=== PATIENT | male | born 1950 | race Caucasian/White ===

== ENCOUNTER → 2017-09-18 10:17 | Outpatient (CLI) | payer OTHER, SELFPAY ==
[2017-09-18 11:30] LABS: AST(SGOT) 28 U/L (15-37); Alanine Aminotransfer ALT/SGPT 49 U/L (16-61); Albumin, Serum 4.2 g/dL (3.2-5.0); Alkaline Phosphatase 75 U/L (45-117); Bilirubin, Direct 0.19 mg/dL (0.00-0.30); Globulin 3.6 g/dL (2.2-4.2); Protein, Total 7.8 g/dL (6.4-8.2)
== END ==
PROVIDERS: Family Provider Family Medicine; PCP Family Medicine; Visit Provider Family Medicine
DX: Z79.899 Other long term (current) drug therapy (principal)
CPT/HCPCS: 36415; 80076

== ENCOUNTER → 2018-02-09 07:56 | Outpatient (CLI) | payer OTHER, SELFPAY ==
--- NOTE | 2018-02-09 07:59 | US_ITS ---
STUDY: THYROID ULTRASOUND REASON FOR EXAM: Male, 67 years old. History of thyroid nodules. Follow-up examination. TECHNIQUE: Ultrasound evaluation of the thyroid was performed with real-time and static nichols-scale imaging. COMPARISON: Comparison is made with prior study dated July 24, 2017 and July 08, 2016. FINDINGS: RIGHT LOBE: The right lobe of the thyroid gland measures 4.6 cm x 1.5 cm x 1.4 cm. There is a homogeneous echotexture. In the midpole of the right lobe, there is a 5 mm x 4 mm x 3 mm solid and cystic nodule. This is unchanged. LEFT LOBE: The left lobe of the thyroid gland measures 4.7 cm x 1.7 cm x 2.2 cm. There is a homogeneous echotexture. There is a stable 1 cm x 0.8 cm x 0.8 cm solid nodule in the midpole of the thyroid lobe. This also evidence of a 6 mm x 6 mm x 5 mm hypoechoic solid nodule in the mid posterior aspect of the left lobe. This also evidence of a 1 cm x 0.8 cm x 0.7 cm hypoechoic solid nodule in the mid inferior portion of the left lobe.. ISTHMUS: The isthmus measures 3.0 mm. The regional lymph nodes are normal. US/Thyroid IMPRESSION: Stable appearance of the thyroid. A third nodule measuring 1 cm x 0.8 cm x 0.7 cm is seen in the left lobe. Electronically Signed: Smith Pabon MD at 15:56 EDT Tel [phone], Service support ,
== END ==
PROVIDERS: Family Provider Family Medicine; PCP Family Medicine; Visit Provider Family Medicine
DX: E04.1 Nontoxic single thyroid nodule (principal)
CPT/HCPCS: 76536

== ENCOUNTER → 2018-03-05 17:29 | Outpatient (CLI) | payer OTHER, SELFPAY ==
--- NOTE | 2018-03-05 17:32 | CT_ITS ---
STUDY: CT ABDOMEN AND PELVIS WITH CONTRAST REASON FOR EXAM: Male, 67 years old. History of diverticular disease. Left-sided abdominal pain. RADIATION DOSAGE (If Supplied By Facility): CTDIvol = ( 13.97 ) mGy, DLP = ( 550.22 ) mGycm TECHNIQUE: Transaxial images were obtained from the dome of the diaphragm to the symphysis pubis with oral contrast. 100 ml of Isovue 300 contrast was administered. Sagittal and coronal images were reconstructed. Individualized dose optimization techniques were used for this CT. COMPARISON: CT of the abdomen and pelvis, May 05, 2017. FINDINGS: The visualized lung bases are unremarkable. The visualized portions of the heart are within normal limits. There is mild fatty infiltration of the liver. There is an irregular hypodensity segment 7 of the liver measuring 0.9 x 0.6 x 0.7 cm. This is thought to represent a cyst. No enhancing masses are seen. Normal gallbladder and extrahepatic biliary system. Normal spleen. Normal pancreas. Normal bilateral adrenal glands. Normal right kidney. Normal left kidney. Normal visualized bilateral ureters. There is a small type I hiatal hernia. The stomach is otherwise grossly unremarkable. Normal small intestine. Question of some minimal wall thickening of the distal descending colon and very mild inflammatory changes are thought present. There is no evidence of obstruction. The colon proximal and distal to this area appeared normal. There is non-visualization of the appendix. Normal abdominal aorta. Normal inferior vena cava. Normal retroperitoneum. Normal urinary bladder. The prostate is mildly enlarged. No pelvic lymphadenopathy. No free air or free fluid is seen within the peritoneal cavity. There are bilateral inguinal hernias of omental fat. The abdominal wall is otherwise unremarkable. There are minimal degenerative changes thoracic spine. There is a stable compression deformity of the superior endplate of T12. CT/Abdomen/Pelvis WITH Contrast IMPRESSION: 1. Question minimal inflammatory changes of the distal descending colon. When compared to the prior study, this is decreased in degree and may represent scarring rather than an acute finding. 2. No other interval change. Electronically Signed: Bam Chase DO at 19:33 EDT Tel [phone], Service support ,
[2018-03-05 17:46] LABS: CREATININE FINGERSTICK 0.6 mg/dL (0.70-1.30); EGFR FINGERSTICK > 60.0000 mL/min (>60)
== END ==
PROVIDERS: Family Provider Family Medicine; PCP Family Medicine; Visit Provider Family Medicine
DX: R10.9 Unspecified abdominal pain (principal)
CPT/HCPCS: 74177; Q9967

== ENCOUNTER → 2018-07-13 09:19 | Outpatient (CLI) | payer OTHER, SELFPAY ==
[2018-07-13 09:43] LABS: Absolute Lymphocyte Count 2.22 X10^3/ul (0.83-4.51); Absolute Neutrophil Count 4.7 X10^3/uL (2.0-7.7); Basophil# 0.04 X10^3/uL; Basophil% 0.5 % (0-1); Eosinophil# 0.25 X10^3/uL; Eosinophils% 3.2 % (0-5); Hematocrit 42.8 % (40-54); Hemoglobin 15.2 g/dl (13.0-16.5); Lymphocyte # 2.22 X10^3/ul (4.0); Lymphocyte % 28.5 % (19-41); Mean Corp Hgb Conc 35.5 g/gl (32-36); Mean Corpuscular Volume 92.8 fL (80-94); Mean Platelet Vol. 10.4 fl (6.2-12.0); Monocyte# 0.54 X10^3/uL; Monocyte% 6.9 % (0-10); Neutrophil # 4.72 X10^3/uL (2.7-7.7); Neutrophil % 60.8 % (47-70); Platelet Count 156 K/mm3 (150-450); RBC Distribution Width SD 40.3 fl (35.1-43.9); Red Blood Count 4.61 M/mm3 (4.6-6.2); White Blood Count 7.8 K/mm3 (4.4-11.0)
[2018-07-13 09:45] LABS: POSITIVE COUNT NO; POSITIVE DIFFERENTIAL NO; POSITIVE MORPHOLOGY NO
[2018-07-13 10:13] LABS: AST(SGOT) 22 U/L (15-37); Alanine Aminotransfer ALT/SGPT 40 U/L (16-61); Albumin, Serum 3.7 g/dL (3.2-5.0); Alkaline Phosphatase 74 U/L (45-117); Anion Gap 5 (5-15); BUN 9 mg/dL (7-18); BUN/Creat Ratio 9.6 RATIO (10-20); Calcium,Total 8.4 mg/dL (8.5-10.1); Chloride 108 mmol/L (98-107); Cholesterol 90 mg/dL (200); Creatinine, Serum 0.93 mg/dL (0.70-1.30); EST Glomerular Filtration Rate 86 mL/min (>60); Est Glom Filt Rate - Afr Amer 104 mL/min (>60); Globulin 3.6 g/dL (2.2-4.2); Glucose 99 mg/dL (74-106); High Density Lipoprotein 30 mg/dL; Protein, Total 7.3 g/dL (6.4-8.2); Sodium Level 140 mmol/L (136-145); Thyroid Stim Hormone (TSH) 1.67 uIU/mL (0.358-3.74); Triglycerides 181 mg/dL; Very Low Density Lipoprotein 36 mg/dL (5-40)
== END ==
PROVIDERS: Family Provider Family Medicine; PCP Family Medicine; Referring Provider Family Medicine; Visit Provider Family Medicine
DX: E78.5 Hyperlipidemia, unspecified (principal); R10.9 Unspecified abdominal pain; E04.2 Nontoxic multinodular goiter
CPT/HCPCS: 36415; 80053; 80061; 84443; 85025

== ENCOUNTER → 2018-11-19 09:53 | Outpatient (CLI) | payer OTHER, SELFPAY | PROVIDERS: Family Provider Family Medicine; PCP Family Medicine; Referring Provider Otolaryngology; Visit Provider Otolaryngology | DX: S01.309A Unspecified open wound of unspecified ear, initial encounter (principal) | CPT/HCPCS: 87070; 87075; 87205 ==

== ENCOUNTER → 2018-12-12 | Outpatient (CLI) | payer OTHER, SELFPAY | END | disposition home or self-care (01) | LOC: LABSPEC 20:09 | PROVIDERS: Family Provider Family Medicine; PCP Family Medicine; Referring Provider Otolaryngology Otolaryngology/Facial Plastic Surgery; Visit Provider Otolaryngology Otolaryngology/Facial Plastic Surgery | DX: H61.032 Chondritis of left external ear (principal) | CPT/HCPCS: 87070; 87205 ==

== ENCOUNTER → 2018-12-23 08:23 | Outpatient (CLI) | payer OTHER, SELFPAY ==
[2018-12-23 09:18] LABS: Absolute Lymphocyte Count 1.77 X10^3/ul (0.83-4.51); Absolute Neutrophil Count 4.4 X10^3/uL (2.0-7.7); Basophil# 0.03 X10^3/uL; Basophil% 0.4 % (0-1); Eosinophil# 0.17 X10^3/uL; Eosinophils% 2.5 % (0-5); Hematocrit 44.4 % (40-54); Hemoglobin 15.6 g/dl (13.0-16.5); Lymphocyte # 1.77 X10^3/ul (4.0); Lymphocyte % 25.8 % (19-41); Mean Corp Hgb Conc 35.1 g/gl (32-36); Mean Corpuscular Hgb 32.2 pg (27.0-32.0); Mean Corpuscular Volume 91.7 fL (80-94); Mean Platelet Vol. 10.4 fl (6.2-12.0); Monocyte# 0.51 X10^3/uL; Monocyte% 7.4 % (0-10); Neutrophil # 4.37 X10^3/uL (2.7-7.7); Neutrophil % 63.8 % (47-70); Platelet Count 169 K/mm3 (150-450); RBC Distribution Width SD 39.6 fl (35.1-43.9); Red Blood Count 4.84 M/mm3 (4.6-6.2); White Blood Count 6.9 K/mm3 (4.4-11.0)
[2018-12-23 09:22] LABS: POSITIVE COUNT NO; POSITIVE DIFFERENTIAL NO; POSITIVE MORPHOLOGY NO
[2018-12-23 09:49] LABS: ALB/GLOB Ratio 1.2 RATIO (0.9-2.4); AST(SGOT) 30 U/L (15-37); Alanine Aminotransfer ALT/SGPT 36 U/L (16-61); Albumin, Serum 4.2 g/dL (3.2-5.0); Alkaline Phosphatase 67 U/L (45-117); Anion Gap 3 (5-15); BUN 10 mg/dL (7-18); BUN/Creat Ratio 10.4 RATIO (10-20); Chloride 109 mmol/L (98-107); Cholesterol 111 mg/dL (200); Creatinine, Serum 0.96 mg/dL (0.70-1.30); EST Glomerular Filtration Rate 82 mL/min (>60); Est Glom Filt Rate - Afr Amer 100 mL/min (>60); Globulin 3.6 g/dL (2.2-4.2); Glucose 102 mg/dL (74-106); High Density Lipoprotein 37 mg/dL; PSA,Total - Annual Screen 0.48 ng/mL (0.00-4.00); Potassium 4.1 mmol/L (3.5-5.1); Protein, Total 7.8 g/dL (6.4-8.2); Sodium Level 141 mmol/L (136-145); Thyroid Stim Hormone (TSH) 1.34 uIU/mL (0.358-3.74); Triglycerides 88 mg/dL; Very Low Density Lipoprotein 18 mg/dL (5-40)
[2018-12-23 10:10] LABS: Hemoglobin A1c 5.3 % (4.2-6.3)
== END ==
PROVIDERS: Family Provider Family Medicine; PCP Family Medicine; Referring Provider Family Medicine; Visit Provider Family Medicine
DX: T81.31XA Disruption of external operation (surgical) wound, not elsewhere classified, initial encounter (principal); E78.5 Hyperlipidemia, unspecified; E04.2 Nontoxic multinodular goiter; Z12.5 Encounter for screening for malignant neoplasm of prostate
CPT/HCPCS: 36415; 80053; 80061; 83036; 84153; 84443; 85025; G0103

== ENCOUNTER → 2019-05-12 | Outpatient (CLI) | payer OTHER, SELFPAY ==
--- NOTE | 2019-05-12 08:18 | US_ITS ---
STUDY: THYROID ULTRASOUND REASON FOR EXAM: Male, 68 years old. Nodules TECHNIQUE: Ultrasound evaluation of the thyroid was performed with real-time and static nichols-scale imaging. COMPARISON: None. FINDINGS: RIGHT LOBE: The right lobe of the thyroid gland measures 4.7 x 1.5 x 2.0 cm. There is a homogeneous echotexture. There is a solid mid thyroid 4 mm nodule. The previously noted cystic component of this nodule is not seen. LEFT LOBE: The left lobe of the thyroid gland measures 4.4 x 1.7 x 2.0 cm. There is a homogeneous echotexture. There is a heterogeneous hypoechoic partially cystic mid thyroid nodule measuring 6 x 7 mm. A mid thyroid slightly heterogeneous solid 9 x 6 mm nodule is noted. Echogenic lower 8 x 9 mm solid nodule is noted. These nodules are relatively stable. ISTHMUS: The isthmus measures 2 mm . The regional lymph nodes are normal. US/Thyroid IMPRESSION: Relatively stable nodules in the left thyroid lobe. The right thyroid nodule appears more solid since the previous study. Electronically Signed: Carl Perez DO at 19:14 EDT Tel [phone], Service support ,
== END | disposition home or self-care (01) ==
LOC: US 08:16
PROVIDERS: Family Provider Family Medicine; PCP Family Medicine; Referring Provider Family Medicine; Visit Provider Family Medicine
DX: E04.2 Nontoxic multinodular goiter (principal)
CPT/HCPCS: 76536

== ENCOUNTER → 2020-05-04 08:55 | Outpatient (CLI) | payer OTHER, SELFPAY ==
[2020-05-04 10:42] LABS: Anion Gap 7 (5-15); BUN 9 mg/dL (7-18); BUN/Creat Ratio 9.2 RATIO (10-20); Calcium,Total 9.1 mg/dL (8.5-10.1); Chloride 107 mmol/L (98-107); Cholesterol 170 mg/dL (200); Creatinine, Serum 0.98 mg/dL (0.70-1.30); EST Glomerular Filtration Rate 80 mL/min (>60); Est Glom Filt Rate - Afr Amer 97 mL/min (>60); Glucose 95 mg/dL (74-106); High Density Lipoprotein 41 mg/dL; PSA,Total - Annual Screen 0.53 ng/mL (0.00-4.00); Sodium Level 140 mmol/L (136-145); Thyroid Stim Hormone (TSH) 1.36 uIU/mL (0.358-3.74); Triglycerides 102 mg/dL; Very Low Density Lipoprotein 20 mg/dL (5-40)
== END ==
PROVIDERS: PCP Family Medicine; Referring Provider Family Medicine; Visit Provider Family Medicine
DX: Z00.00 Encounter for general adult medical examination without abnormal findings (principal)
CPT/HCPCS: 36415; 80048; 80061; 84153; 84403; 84443; G0103

== ENCOUNTER → 2020-12-01 06:46 | Outpatient (CLI) | payer MEDICARE, OTHER, SELFPAY ==
--- NOTE | 2020-12-01 06:50 | CT_ITS ---
STUDY: CT ABDOMEN AND PELVIS WITH AND WITHOUT CONTRAST REASON FOR EXAM: Male, 69 years old. ABD MIGRAINES, urinary calculus. Mild left-sided abdominal pain with radiation into the left groin. RADIATION DOSAGE (If Supplied By Facility): CTDIvol = ( 14.10 ) mGy, DLP = ( 1279.91 ) mGycm TECHNIQUE: Transaxial images were obtained from the dome of the diaphragm to the symphysis pubis with oral contrast. Oral and amp; IV Readi-CAT and amp; 100mL Isovue-300 was administered. Sagittal and coronal images were reconstructed. Individualized dose optimization techniques were used for this CT. COMPARISON: Comparison is made with prior study dated 03/05/2018. FINDINGS: The visualized lung bases are unremarkable. The visualized portions of the heart are within normal limits. Stable 1 cm cyst in the lateral aspect of the midportion of the right lobe of the liver in segment 7. Normal gallbladder and extrahepatic biliary system. Normal spleen. 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 Normal pancreas. Normal bilateral adrenal glands. Normal right kidney. Normal left kidney. Normal visualized stomach. Normal small intestine. Normal colon. There is non-visualization of the appendix. There is atherosclerotic calcification of the abdominal aorta and its major visceral branches, without a demonstrated aneurysm. Normal inferior vena cava. Normal retroperitoneum. Normal urinary bladder. Small bilateral inguinal hernias containing fat. 50% loss of height of the T12 vertebrae. This is unchanged. CT/CT Abd/Pelvis W/WO Contrast IMPRESSION: Stable cyst in the right lobe of the liver. Stable appearance of the calcified splenic artery aneurysm in the region of the splenic hilum. Electronically Signed: Smith Pabon MD at 9:13 EDT , Service support ,
[2020-12-01 07:05] LABS: CREATININE FINGERSTICK 1.1 mg/dL (0.70-1.30); EGFR FINGERSTICK > 60.0000 mL/min (>60)
== END ==
PROVIDERS: PCP Family Medicine; Referring Provider Urology; Visit Provider Urology
DX: G43.D1 Abdominal migraine, intractable (principal); Z87.442 Personal history of urinary calculi
CPT/HCPCS: 74178; Q9967

== ENCOUNTER → 2021-04-06 06:10 | Outpatient (CLI) | payer MEDICARE, OTHER, SELFPAY ==
--- NOTE | 2021-04-06 12:29 | STRESSREP ---
Stress Test Report Exercise stress test. 70-year-old man with a history of shortness of breath. Medications: Prevacid, aspirin, vitamin D, saw palmetto, zinc. Stress protocol: Resting EKG demonstrates normal sinus rhythm with a rate of 57 bpm resting blood pressure is 128/80 mmHg. The patient exercised according to regular Prosper protocol for total duration of 9 minutes and 10 seconds. Patient completed stage III of the Prosper protocol. The maximum heart rate attained was 141 bpm which was 94% of max infected heart rate the maximum workload was 10.6 metabolic equivalents. At rest there were no ST or T wave changes noted to suggest ischemia and at peak exercise upsloping ST changes were noted with did not meet the criteria for ischemia. The test was terminated due to target heart rate being achieved and mild shortness of breath. No chest pain was noted. The peak blood pressure was 152/76 mmHg which was a good blood pressure response to exercise. Myocardial perfusion protocol. 11.4 mCi of technetium 99m sestamibi was injected at rest. The patient exercised according to regular Prosper protocol and at peak exercise 34.0 mCi of technetium 99m sestamibi was injected stress images were obtained stress and rest images were reconstructed and compared in the short axis vertical long and horizontal long axis. Gated images were also obtained Perfusion SPECT analysis: Review of the stress images demonstrate normal uptake of tracer noted in all areas of the myocardium. The resting images similarly demonstrate normal uptake of tracer noted in all areas of the myocardium. No areas of reversibility are noted to suggest ischemia. Gated SPECT analysis: The gated ejection fraction is noted to be 60%. Conclusion: Normal exercise myocardial perfusion stress test with a normal work load. Good functional aerobic capacity. No arrhythmias noted. Good blood pressure response to exercise. Compared to the previous stress test no significant changes noted in exercise capacity.
== END ==
PROVIDERS: PCP Family Medicine; Referring Provider Family Medicine; Visit Provider Family Medicine
DX: R06.02 Shortness of breath (principal)
CPT/HCPCS: 78452; 93017; A9500; A4216

== ENCOUNTER → 2021-06-22 13:35 | Outpatient (CLI) | payer MEDICARE, OTHER, SELFPAY | PROVIDERS: PCP Family Medicine; Visit Provider Anesthesiology | DX: A69.20 Lyme disease, unspecified (principal) | CPT/HCPCS: 36415 ==

== ENCOUNTER → 2021-07-25 18:15 | Outpatient (CLI) | payer MEDICARE, OTHER, SELFPAY | PROVIDERS: PCP Family Medicine; Referring Provider Family Medicine; Visit Provider Family Medicine | DX: Z20.822 Contact with and (suspected) exposure to COVID-19 (principal) | CPT/HCPCS: 87635; U0005; U0003 ==

== ENCOUNTER 2021-11-23 09:05 | Outpatient (CLI) | payer MEDICARE, OTHER, SELFPAY ==
--- NOTE | 2021-11-23 09:08 | RAD_ITS ---
STUDY: X-RAY - LEFT HAND, ATTENTION FINGER REASON FOR EXAM: Male, 70 years old. THUMB PAIN TECHNIQUE: 3 view(s) of the thumb were obtained. COMPARISON: None. FINDINGS: BONES: No fracture demonstrated. Degenerative changes most pronounced at the carpometacarpal joint. JOINTS: No dislocation. SOFT TISSUES: Unremarkable. RAD/Finger(s) Min 2 Views IMPRESSION: No evidence of fracture. Degenerative changes at the carpal metacarpal joint. Electronically Signed: Aimee Rodas MD at 21:52 EDT ,
== END 2021-11-23 23:59 | disposition home or self-care (01) ==
LOC: MTRAD 09:06
PROVIDERS: PCP Family Medicine; Referring Provider Family Medicine; Visit Provider Family Medicine
DX: M79.645 Pain in left finger(s) (principal)
CPT/HCPCS: 73140

== ENCOUNTER → 2021-11-27 08:29 | Outpatient (CLI) | payer MEDICARE, OTHER, SELFPAY ==
[2021-11-27 10:01] LABS: Anion Gap 4 (5-15); BUN 11 mg/dL (7-18); BUN/Creat Ratio 11.2 RATIO (10-20); Calcium,Total 8.6 mg/dL (8.5-10.1); Chloride 107 mmol/L (98-107); Cholesterol 171 mg/dL (200); Creatinine, Serum 0.98 mg/dL (0.70-1.30); EST Glomerular Filtration Rate 80 mL/min (>60); Est Glom Filt Rate - Afr Amer 97 mL/min (>60); Glucose 102 mg/dL (74-106); High Density Lipoprotein 32 mg/dL; Potassium 3.9 mmol/L (3.5-5.1); Sodium Level 141 mmol/L (136-145); Thyroid Stim Hormone (TSH) 1.65 uIU/mL (0.358-3.74); Triglycerides 176 mg/dL; Very Low Density Lipoprotein 35 mg/dL (5-40)
== END ==
PROVIDERS: PCP Family Medicine; Referring Provider Family Medicine; Visit Provider Family Medicine
DX: Z00.00 Encounter for general adult medical examination without abnormal findings (principal); E78.5 Hyperlipidemia, unspecified; E04.2 Nontoxic multinodular goiter
CPT/HCPCS: 36415; 80048; 80061; 84443

== ENCOUNTER 2021-11-28 12:20 | Outpatient (CLI) | payer MEDICARE, OTHER, SELFPAY ==
[2021-11-28 16:31] LABS: Hemoglobin A1c 5.3 % (3.8-5.6)
== END 2021-11-28 23:59 | disposition home or self-care (01) ==
LOC: MFPLAB 12:23
PROVIDERS: PCP Family Medicine; Referring Provider Family Medicine; Visit Provider Family Medicine
DX: R73.09 Other abnormal glucose (principal)
CPT/HCPCS: 36415; 83036

== ENCOUNTER → 2022-01-26 | Outpatient (CLI) | payer MEDICARE, OTHER, SELFPAY ==
[2022-01-26 09:11] LABS: PSA,Total - Annual Screen 0.58 ng/mL (0.00-4.00)
== END | disposition home or self-care (01) ==
LOC: LAB 08:34
PROVIDERS: PCP Family Medicine; Visit Provider Urology
DX: Z12.5 Encounter for screening for malignant neoplasm of prostate (principal)
CPT/HCPCS: 36415; 84153; G0103

== ENCOUNTER → 2022-11-26 | Outpatient (CLI) | payer MEDICARE, OTHER, SELFPAY ==
[2022-11-26 10:11] LABS: Absolute Lymphocyte Count 1.54 X10^3/uL (0.83-4.51); Absolute Neutrophil Count 4.4 X10^3/uL (2.0-7.7); Basophil# 0.06 X10^3/uL; Basophil% 0.9 % (0-1); Eosinophil# 0.21 X10^3/uL; Eosinophils% 3.1 % (0-5); Hematocrit 43.6 % (40-54); Hemoglobin 15.1 g/dL (13.0-16.5); Lymphocyte # 1.54 X10^3/ul (0.83-4.51); Lymphocyte % 22.8 % (19-41); Mean Corp Hgb Conc 34.6 g/dL (32-36); Mean Corpuscular Hgb 32.5 pg (27.0-32.0); Mean Corpuscular Volume 93.8 fL (80-94); Mean Platelet Vol. 10.1 fl (6.2-12.0); Monocyte# 0.51 X10^3/uL; Monocyte% 7.5 % (0-10); NRBC Flagged by Analyzer 0 % (0-5); Neutrophil # 4.42 X10^3/uL (2.7-7.7); Neutrophil % 65.4 % (47-70); Platelet Count 200 K/mm3 (150-450); RBC Distribution Width CV 11.9 % (11.6-14.6); RBC Distribution Width SD 40.8 fl (35.1-43.9); Red Blood Count 4.65 M/mm3 (4.6-6.2); White Blood Count 6.8 K/mm3 (4.4-11.0)
[2022-11-26 10:34] LABS: Anion Gap 5 (5-15); BUN 13 mg/dL (7-18); BUN/Creat Ratio 14.1 RATIO (10-20); Calcium,Total 9.2 mg/dL (8.5-10.1); Chloride 107 mmol/L (98-107); Cholesterol 163 mg/dL (200); Creatinine, Serum 0.92 mg/dL (0.70-1.30); EST Glomerular Filtration Rate 86 mL/min (>60); Est Glom Filt Rate - Afr Amer 104 mL/min (>60); Glucose 108 mg/dL (74-106); High Density Lipoprotein 36 mg/dL; Potassium 4.3 mmol/L (3.5-5.1); Sodium Level 137 mmol/L (136-145); Thyroid Stim Hormone (TSH) 1.26 uIU/mL (0.358-3.74); Triglycerides 135 mg/dL; Very Low Density Lipoprotein 27 mg/dL (5-40)
[2022-11-26 10:37] LABS: Vitamin D,25 Hydroxy 48.5 ng/mL
== END | disposition home or self-care (01) ==
LOC: MFPLAB 08:26
PROVIDERS: PCP Family Medicine; Referring Provider Family Medicine; Visit Provider Family Medicine
DX: Z00.00 Encounter for general adult medical examination without abnormal findings (principal); E55.9 Vitamin D deficiency, unspecified; D64.9 Anemia, unspecified; E78.5 Hyperlipidemia, unspecified
CPT/HCPCS: 36415; 80048; 80061; 82306; 84443; 85025

== ENCOUNTER → 2023-02-10 | Outpatient (CLI) | payer MEDICARE, OTHER, SELFPAY ==
[2023-02-10 13:13] LABS: PSA,Total - Annual Screen 0.74 ng/mL (0.00-4.00)
== END | disposition home or self-care (01) ==
LOC: LAB 11:49
PROVIDERS: PCP Family Medicine; Referring Provider Urology; Visit Provider Urology
DX: Z12.5 Encounter for screening for malignant neoplasm of prostate (principal)
CPT/HCPCS: 36415; 84153; G0103

== ENCOUNTER → 2023-02-19 | Outpatient (CLI) | payer MEDICARE, OTHER, SELFPAY ==
--- NOTE | 2023-02-19 09:11 | CT_ITS ---
STUDY: CT ABDOMEN WITH CONTRAST REASON FOR EXAM: Male, 72 years old. RUQ AND RIGHT FLANK PAIN RADIATION DOSAGE (If Supplied By Facility): CTDIvol = ( 13.38 ) mGy, DLP = ( 473.89 ) mGycm TECHNIQUE: Transaxial images were obtained post I.V. administration of Oral Gastrografin, and with oral contrast. Sagittal and coronal images were reconstructed. Individualized dose optimization techniques were used for this CT. COMPARISON: Comparison is made with prior study dated December 01, 2020. FINDINGS: The visualized lung bases are unremarkable. The visualized portions of the heart are within normal limits. Stable 1 cm cyst in the midportion of the right lobe of the liver. Normal gallbladder and extrahepatic biliary system. Normal spleen. Normal pancreas. Stable 1 cm calcified splenic artery aneurysm in the region of the splenic hilum. Normal bilateral adrenal glands. Normal right kidney. Normal left kidney. Normal visualized stomach. Normal small intestine. Fecal material is seen in the region of the cecum and ileocecal valve. There are scattered colonic diverticula consistent with diverticulosis. There is non-visualization of the appendix. There is scattered atherosclerotic calcification of the abdominal aorta, without a demonstrated aneurysm. Normal inferior vena cava. Normal retroperitoneum. Normal abdominal wall. Stable loss of right of the T12 vertebrae. CT/Abdomen WITH IV Contrast IMPRESSION: Stable examination. Electronically Signed: Smith Pabon MD at 12:32 EDT ,
[2023-02-19 09:25] LABS: Absolute Lymphocyte Count 1.94 X10^3/uL (0.83-4.51); Basophil# 0.07 X10^3/uL; Basophil% 0.9 % (0-1); Eosinophil# 0.25 X10^3/uL; Eosinophils% 3.1 % (0-5); Hemoglobin 15.6 g/dL (13.0-16.5); Lymphocyte # 1.94 X10^3/ul (0.83-4.51); Lymphocyte % 24.2 % (19-41); Mean Corp Hgb Conc 34.7 g/dL (32-36); Mean Corpuscular Hgb 32.5 pg (27.0-32.0); Mean Corpuscular Volume 93.8 fL (80-94); Mean Platelet Vol. 10.2 fl (6.2-12.0); Monocyte# 0.74 X10^3/uL; Monocyte% 9.2 % (0-10); NRBC Flagged by Analyzer 0 % (0-5); Neutrophil # 4.99 X10^3/uL (2.7-7.7); Neutrophil % 62.2 % (47-70); Platelet Count 183 K/mm3 (150-450); RBC Distribution Width CV 11.6 % (11.6-14.6); RBC Distribution Width SD 39.8 fl (35.1-43.9)
[2023-02-19 10:13] LABS: ALB/GLOB Ratio 1.3 RATIO (0.9-2.4); AST(SGOT) 27 U/L (15-37); Alanine Aminotransfer ALT/SGPT 38 U/L (16-61); Albumin, Serum 4.2 g/dL (3.2-5.0); Alkaline Phosphatase 81 U/L (45-117); Anion Gap 1 (5-15); BUN 12 mg/dL (7-18); BUN/Creat Ratio 13.5 RATIO (10-20); Chloride 110 mmol/L (98-107); Creatinine, Serum 0.89 mg/dL (0.70-1.30); EST Glomerular Filtration Rate 90 mL/min (>60); Est Glom Filt Rate - Afr Amer 108 mL/min (>60); Globulin 3.3 g/dL (2.2-4.2); Glucose 105 mg/dL (74-106); Lipase 38 U/L (13-75); Potassium 4.1 mmol/L (3.5-5.1); Protein, Total 7.5 g/dL (6.4-8.2); Sodium Level 138 mmol/L (136-145)
== END | disposition home or self-care (01) ==
PROVIDERS: PCP Family Medicine; Referring Provider Family Medicine; Visit Provider Family Medicine
DX: R10.11 Right upper quadrant pain (principal)
CPT/HCPCS: 36415; 74160; 80053; 83690; 85025; Q9967

== ENCOUNTER → 2023-12-11 | Outpatient (CLI) | payer MEDICARE, OTHER, SELFPAY ==
--- NOTE | 2023-12-11 10:56 | RAD_ITS ---
INDICATION: RADICULAR PAIN EXAMINATION/TECHNIQUE: X-RAY - XR Spine Lumbar Min 4 Views COMPARISON: None. FINDINGS: VERTEBRAE: Vertebral body height and alignment maintained throughout the lumbar spine. Minimal marginal osteophyte formation noted. There is significant deformity of the T12 vertebral body however consistent with compression and coarse osteophyte formation. Findings are stable from prior CT of 02/19/2023. Moderate facet arthropathy from L3 to S1. DISCS: Disc spaces are maintained, minimal marginal osteophyte formation throughout the lumbar spine. INCLUDED ABDOMEN: Included bowel gas pattern is non-obstructive. RAD/L/S Spine Min 4 Views IMPRESSION: 1. No evidence fracture malalignment or destructive bony process involving lumbar spine. Mild facet arthrosis. 2. Chronic deformity of the T12 vertebral body Electronically Signed: Michael Martins MD at 20:33 EDT ,
[2023-12-11 12:38] LABS: Anion Gap 8 (5-15); BUN 14 mg/dL (7-18); BUN/Creat Ratio 13.7 RATIO (10-20); Calcium,Total 9.3 mg/dL (8.5-10.1); Chloride 107 mmol/L (98-107); Cholesterol 177 mg/dL (200); Creatinine, Serum 1.02 mg/dL (0.70-1.30); EST Glomerular Filtration Rate 76 mL/min (>60); Est Glom Filt Rate - Afr Amer 92 mL/min (>60); Glucose 106 mg/dL (74-106); High Density Lipoprotein 35 mg/dL; Potassium 4.2 mmol/L (3.5-5.1); Sodium Level 138 mmol/L (136-145); Triglycerides 111 mg/dL; Very Low Density Lipoprotein 22 mg/dL (5-40)
== END | disposition home or self-care (01) ==
LOC: MTLAB 10:54
PROVIDERS: PCP Family Medicine; Referring Provider Family Medicine; Visit Provider Family Medicine
DX: Z00.00 Encounter for general adult medical examination without abnormal findings (principal); M54.10 Radiculopathy, site unspecified; Z79.899 Other long term (current) drug therapy
CPT/HCPCS: 36415; 72110; 80048; 80061

== ENCOUNTER 2024-01-22 11:00 | Outpatient (RCR) | payer MEDICARE, OTHER, SELFPAY ==
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
--- NOTE | 2024-03-24 07:50 | HP.PTDCSUM ---
Discharge Summary D/C summary: It has been my pleasure to treat NATHANIEL CORADO referred by Dr. Eddie Gonzalez MD, with the diagnosis of Back pain for a total of 8 visit(s). Discharge Date: 01/22/24 Please see the following information for a summary of their discharge status. Subjective Subjective: Going the right way. Rolliing in bed without oblique cramps. Less achiness in leg. Feels more mobile. Will see Lisa again soon, not set up yet. Pain in the last week10 noticeable but not debilitating. Walked alot when out of town and achy now and then. Will keep exercising at home and will schedule with doctor. Pain LB and legs: Pain Intensity (Out of 10): 2 Overall Improvement % Improvement: 80 Objective Objective/Function: 38 degrees B rotation , still pain in R scap area to end range R ROM, 30 degree extension L/s Exitting chair easily without UE and walking easily and I without antalgia. Pt wishes to visit Dr. Gonzalez adn continue HEP whcih is appropriate. Goals Goal 1:: Full rotation 30 degrees and ext to 20 degrees in lumbar without pain increase Goal Progress: Goal Met Goal 2:: I appropriate posture, rom LB and core strength to limit future problems Goal Progress: Goal Met Goal 3:: Get up out of chair consistently without stiffness/pain Goal Progress: Goal Met Goal 4:: back oswestry 4 or better Goal Progress: Progressing Plan Plan: d/c to HEP D/C Information d/c sentence: If there are questions or concerns regarding this patient's physical therapy, please feel free to call me at [phone]. Thank you for the referral of this patient. Sincerely, Long Keith, DPT, OCS, CSCS Balance/Gait/Functional tests Balance/Special Test Scores Oswestry Low Back Score: 7 Improvement % Improvement: 80
== END 2024-01-22 19:00 | disposition home or self-care (01) ==
LOC: PT 11:00
PROVIDERS: PCP Family Medicine; Referring Provider Family Medicine; Visit Provider Family Medicine
DX: M54.9 Dorsalgia, unspecified (principal)
CPT/HCPCS: 97110; 97161; 97530

== ENCOUNTER → 2024-02-14 | Outpatient (CLI) | payer MEDICARE, OTHER, SELFPAY ==
--- NOTE | 2024-02-14 07:57 | MRI_ITS ---
STUDY: MRI LUMBAR SPINE WITHOUT CONTRAST REASON FOR EXAM: Male, 73 years old. RADICULAR PAIN, hx of T12 FX TECHNIQUE: Standardized fat and water weighted pulse sequences were obtained in the sagittal and axial planes. COMPARISON: Lumbar spine radiographs 12/11/2023. CT abdomen and pelvis with and without contrast 12/01/2020. FINDINGS: T10-T11: (Sagittal only). Normal T10 inferior endplate. Minimal old anterior wedging of the upper T11 vertebral body is unchanged. Normal disc height, hydration and morphology. No ventral extradural defect. Normal central canal and bilateral intervertebral neural foramina. T11-T12: Normal T11 inferior endplate. Moderate old anterior wedge compression fracture involving the upper two thirds of the T12 vertebral body causing increased central disc space height. This is unchanged. No ventral extradural defect. Normal facet joints. Normal central canal and bilateral lateral recesses. Normal bilateral intervertebral neural foramina. T12-L1: Normal endplates. Normal disc height, hydration and morphology. Normal bilateral facet joints. Normal central canal and bilateral lateral recesses. Normal bilateral intervertebral neural foramina. Normal lumbar lordosis. There is no substantial scoliosis. Normal conus medullaris that terminates at the lower T12 vertebral body level. L1-2: Normal endplates. Normal disc height, hydration and morphology. Normal bilateral facet joints. Normal central canal and bilateral lateral recesses. Normal bilateral intervertebral neural foramina. L2-3: Normal endplates. Normal disc height. Prominent ventral extradural defect due to posterior bulging annulus. No significant facet arthropathy. Prominent dorsal epidural lipomatosis. Moderately pronounced central canal stenosis with an AP canal diameter of 5.3 mm. Normal bilateral lateral recesses. Normal bilateral intervertebral neural foramina. L3-4: Normal endplates. Normal disc height. No significant facet arthropathy. Mild central canal stenosis with an AP canal diameter 9 mm. Normal bilateral lateral recesses. Normal bilateral intervertebral neural foramina. Perineural cyst in the right intervertebral neural foramen. L4-5: Normal endplates. Minimal disc space height narrowing. Mild degenerative anterolisthesis of L4 on L5. Moderate bilateral degenerative facet arthropathy. Pronounced central canal stenosis with an AP canal diameter of 4 mm. Normal bilateral lateral recesses. Normal bilateral intervertebral neural foramina. L5-S1: Normal endplates. Normal disc height, hydration and morphology. Normal bilateral facet joints. Normal central canal and bilateral lateral recesses. Normal bilateral intervertebral neural foramina. Diffuse fatty infiltration of the visualized sacral ala. No insufficiency fracture. No suspicious abnormality of the SI joints. Normal visualized paraspinous soft tissue structures. MRI/Spine Lumbar (Routine) IMPRESSION: 1. Pronounced central canal stenosis at L4-L5 disc space level secondary to developmentally short pedicles and mild degenerative anterolisthesis of L4 on L5. 2. Moderately pronounced central canal stenosis at L2-L3 disc space level with an AP canal diameter 5.3 mm secondary to developmentally short pedicles, prominent posterior bulging annulus and prominent dorsal epidural lipomatosis. 3. No MRI evidence of lumbar extruded disc fragment or lumbar disc protrusion. 4. Moderate old anterior wedge compression fracture in the ventral two thirds of the upper T12 vertebral body is unchanged. Electronically Signed: Joaquín Parra MD at 13:59 EDT ,
== END | disposition home or self-care (01) ==
LOC: MRI 07:54
PROVIDERS: PCP Family Medicine; Referring Provider Family Medicine; Visit Provider Family Medicine
DX: M54.10 Radiculopathy, site unspecified (principal)
CPT/HCPCS: 72148

== ENCOUNTER → 2024-02-17 | Outpatient (CLI) | payer MEDICARE, OTHER, SELFPAY | END | disposition home or self-care (01) | LOC: LAB 08:52 | PROVIDERS: PCP Family Medicine; Referring Provider Urology; Visit Provider Urology | DX: Z12.5 Encounter for screening for malignant neoplasm of prostate (principal) | CPT/HCPCS: 36415; 84153; G0103 ==

== ENCOUNTER 2024-02-28 13:15 | Emergency (ER) | payer MEDICARE, OTHER, SELFPAY ==
[2024-02-28 13:16] VITALS: BP 143/79; PULSE 63; RESP 16; TEMP 35.5; O2SAT 96; BMI 25.7
--- NOTE | 2024-02-28 13:50 | RAD_ITS ---
INDICATION: foot injury EXAMINATION/TECHNIQUE: X-RAY - LEFT XR Foot Min 3 Views 3 VIEWS COMPARISON: No relevant prior comparison study available FINDINGS: SOFT TISSUES: No soft tissue swelling or gas. No radiopaque foreign body. BONES/JOINTS: Nondisplaced fracture of the base of the fifth metatarsal. The remainder of the osseous structures appear intact.. Normal alignment. Preservation of the joint space.. No sclerotic or destructive changes observed. RAD/Foot min 3 Views IMPRESSION: Fracture of the base of the fifth metatarsal. Electronically Signed: Yuriy Velazco MD at 15:02 EDT ,
--- NOTE | 2024-02-28 13:50 | RAD_ITS ---
INDICATION: ankle pain EXAMINATION/TECHNIQUE: X-RAY - LEFT XR Ankle Min 3 Views 3 VIEWS COMPARISON: No relevant prior comparison study available FINDINGS: SOFT TISSUES: Mild soft tissue swelling of the lateral aspect of the ankle. No radiopaque foreign body. BONES/JOINTS: Minimal irregularity of the lateral cortex of the base of fifth metatarsal however no fracture line is seen. The remainder of the osseous structures appear intact. Normal alignment. Preservation of the joint space.. No sclerotic or destructive changes observed. RAD/Ankle min 3 Views IMPRESSION: No evidence of acute fracture as described above. If symptoms persist, follow-up exams is recommended. Electronically Signed: Yuriy Velazco MD at 15:00 EDT ,
--- NOTE | 2024-02-28 13:54 | EDS_ITS ---
<Statement entered by Cristal Gonzalez MD - 02/28/24 21:57> I have personally performed a face to face assessment of the patient and have reviewed the BALA Note. Patient present secondary to left foot and ankle injury. Patient was at a local car extremity stepped off the curb into a pothole and rolled his left ankle injuring his foot. He was able to ambulate back to the car to drive home. He has pain and bruising on the lateral aspect of the left foot. He denies any other injury. Patient sitting upright in bed no acute distress. Left lower extremity examination reveals edema and early ecchymosis along the fifth metatarsal. Good cap refill distally. No tenderness to the ankle. Left foot and ankle x-rays are obtained. Per my interpretation, patient has a proximal fifth metatarsal fracture. Patient requested that we reviewed the images with Dr. Wong. Dr. Wong was sent the images and feels that this is a pseudo Shane fracture. He requested the patient be placed in a walking boot and he can walk on his heel. He will follow-up with the patient in the office. Patient declines anything for pain. Return instructions provided. HPI History of Present Illness Chief Complaint: Lower Extremity Injury Narrative Narrative: 73-year-old male with history of hypertension who presents to the emergency department with left foot, left ankle pain. Pain states he was outside at a car show, when he stepped off a curb and did not realize that the pavement was uneven and rolling his left ankle inward. Patient has pain to the left foot and left ankle. Here for evaluation. Denies any history of surgery or past injury to this ankle. [facility] Home Medications ?Medication ?Instructions ?Recorded ?Last Taken ?Type lansoprazole 15 mg capsule,delayed 15 mg PO DAILY 07/27/16 07/27/16 History release (Prevacid) metoprolol succinate 50 mg 50 mg PO DAILY 07/27/16 07/27/16 History tablet,extended release 24 hr multivit,Ca,min-iron 8 mg-folic 1 ea PO DAILY 07/27/16 07/27/16 History acid 200 mcg-lycopene 600 mcg tablet (Centrum Men) saw palmetto 160 mg capsule 160 mg PO DAILY 07/27/16 07/27/16 History Allergy/AdvReac Type Severity Reaction Status Date / Time atropine Allergy Fever and Verified 02/28/24 13:16 skin rash Sulfa (Sulfonamide Allergy Other Verified 02/28/24 13:16 Antibiotics) Social History Smoking Status: Never smoker ROS ROS ED ROS Narrative Constitutional: Negative for fever, chills, weight loss, weakness Eyes: Negative for vision loss, vision change, double vision ENT: Negative for any sore throat, ear pain, congestion Cardiovascular: Negative for any chest pain, tightness, palpitations Respiratory: Negative for any cough, sputum production, hemoptysis, dyspnea, dyspnea on exertion, orthopnea Gastrointestinal: Negative for any abdominal pain, nausea, vomiting, diarrhea, constipation, blood in stool, blood in vomit : Negative for any urinary frequency, dysuria, retention, blood in urine Muscle skeletal: Negative for any neck pain, back pain. Positive for left foot, left ankle pain Neurological: Negative for any headache, syncope, dizziness Skin: Negative for any rashes, itching, abrasions, lacerations Psychiatric: Negative for any depression, anxiety, stress, suicidal ideation, homicidal ideation Hematologic: Negative for any excessive bruising, easy bleeding EXAM Physical Exam Narrative Exam Narrative: Vital signs reviewed. Extremities: Patient does have ecchymosis, edema along the fifth metatarsal more proximal, pain to the lateral malleolus, patient is able to flex and extend with minimal difficulty. +2 pedal pulse. No obvious signs of deformity. Neuro: Cranial nerves II through XII intact, no focal neurological deficits. Skin: Clean dry and intact with no rash, purpura, petechiae, vesicles or pustules. Backs/flank: No CVA tenderness, no midline spinal tenderness, no deformity. Psych: Normal mood and affect. No SI, HI or acute psychosis. Const Vital Signs: 02/28/24 13:16 Temperature 95.9 F L Temperature Source Temporal Pulse Rate 63 Respiratory Rate 16 Blood Pressure 143/79 H Blood Pressure Mean 100 Pulse Ox 96 Oxygen Delivery Method Room Air Positive well nourished and well developed General Appearance ED: well developed MDM MDM Radiography Diagnostic Testing: Clinical Impression(s) from Imaging Studies Ankle X-Ray 02/28/24 13:50 IMPRESSION: No evidence of acute fracture as described above. If symptoms persist, follow-up exams is recommended. Electronically Signed: Yuriy Velazco MD at 15:00 EDT , Foot X-Ray 02/28/24 13:50 IMPRESSION: Fracture of the base of the fifth metatarsal. Electronically Signed: Yuriy Velazco MD at 15:02 EDT , Treatment and Re-Evaluation :: Differential diagnosis includes however is not limited to: Fifth metatarsal frac ture, ankle fracture, bimalleolar fracture, ankle sprain, foot contusion Patient appears to be in no obvious distress vital signs are stable, patient presents to the emergency department with pain to the left foot, left ankle after an injury. X-rays of the left foot, left ankle will be obtained, these to be interpreted by ER physician. I did offer the patient some anti- inflammatories, Tylenol, he refused at this time. All radiologic examinations were read, reviewed by the emergency department attending. From these reads, a plan of care will be put in place. Patient again was offered pain medicine, patient states at this time he is not needed. X-rays of the ankle showed no evidence of acute fracture, x-rays of the left foot show a fracture of the base of the fifth metatarsal, spoke with Dr. Wong from orthopedics, believe this is a pseudo Shane fracture. The patient will follow-up with Dr. Wong secondary to their personal relationship. Patient be placed in a walking boot, and will follow-up outpatient. I did again offer pain medicine for home he refused. He will use his crutches at home as needed. Will ice and elevate. Follow-up outpatient. Discharge Plan Triage Chief Complaint: Lower Extremity Injury ED Midlevel Provider: Eddie Mike ED Provider: Cristal Gonzalez Dx/Rx/DC Orders Clinical Impression: Closed fracture of fifth metatarsal bone Instructions: ED Fracture, Foot, ED Ankle Sprain (Adult) Prescriptions: No Action metoprolol succinate 50 MG tablet extended release 24 hr 50 mg PO DAILY Patient Comments: saw palmetto 160 MG capsule 160 mg PO DAILY lansoprazole [Prevacid] 15 MG capsule 15 mg PO DAILY mv,Ca,map-ogop-CJ-lycopene [Centrum Men] 1 EACH tablet 1 ea PO DAILY Primary Care Provider: Eddie Gonzalez Referrals: Jean Wong DO [Med Staff - Active Staff] - Eddie Gonzalez MD [Primary Care Provider] - Activity Restrictions/Additional Instructions: Use the walking boot. You may take it out to ice and elevate. Follow-up with Dr. Wong. Ensure that use ibuprofen. Print Language: [place] Disposition Disposition: Home, Self Care
== END 2024-02-28 15:34 | disposition home or self-care (01) ==
PROVIDERS: Emergency Provider Emergency Medicine; PCP Family Medicine; Visit Provider Emergency Medicine
DX: S92.352A Displaced fracture of fifth metatarsal bone, left foot, initial encounter for closed fracture (principal); X58.XXXA Exposure to other specified factors, initial encounter
CPT/HCPCS: 73610; 73630; 99283

== ENCOUNTER → 2024-04-21 | Outpatient (CLI) | payer MEDICARE, OTHER, SELFPAY ==
[2024-04-21 12:23] LABS: Erythrocyte Sedimentation Rate 2 mm/hr (0-20)
[2024-04-21 13:00] LABS: ALB/GLOB Ratio 1.1 RATIO (0.9-2.4); AST(SGOT) 22 U/L (15-37); Alanine Aminotransfer ALT/SGPT 46 U/L (16-61); Alkaline Phosphatase 77 U/L (45-117); Anion Gap 2 (5-15); BUN 9 mg/dL (7-18); BUN/Creat Ratio 10.1 RATIO (10-20); CRP < 2.90 mg/L (0.0-3.0); Calcium,Total 9.5 mg/dL (8.5-10.1); Chloride 106 mmol/L (98-107); Creatinine, Serum 0.89 mg/dL (0.70-1.30); EST Glomerular Filtration Rate 89 mL/min (>60); Est Glom Filt Rate - Afr Amer 108 mL/min (>60); Globulin 3.5 g/dL (2.2-4.2); Glucose 108 mg/dL (74-106); Potassium 4.5 mmol/L (3.5-5.1); Protein, Total 7.5 g/dL (6.4-8.2); Rheumatoid Factor < 10.0 IU/mL (<15); Sodium Level 137 mmol/L (136-145)
[2024-04-22 14:10] LABS: ANTINUCLEAR ANTIBODIES DIRECT Negative (Negative)
== END | disposition home or self-care (01) ==
LOC: MFPLAB 11:03
PROVIDERS: PCP Family Medicine; Visit Provider Family Medicine
DX: M19.90 Unspecified osteoarthritis, unspecified site (principal); E88.01 Alpha-1-antitrypsin deficiency
CPT/HCPCS: 36415; 80053; 85652; 86038; 86140; 86431

== ENCOUNTER → 2024-09-20 | Outpatient (CLI) | payer MEDICARE, OTHER, SELFPAY ==
--- NOTE | 2024-09-20 13:57 | RAD_ITS ---
PROCEDURE: CERV SPINE OBLIQUE AND FLEX/EXT VIEWS REASON FOR EXAM: History of central canal stenosis. Neck pain. TECHNIQUE: 7 views of the cervical spine. COMPARISON: None. FINDINGS: Normal vertebral body heights. No visible fracture. Atlantoaxial articulation is maintained. Spondylosis at C5 through C7. Severe narrowing of the C6-C7 interspace. Remaining interspaces normal in height. Mild grade 1 anterolisthesis of C5 on C6 by approximately 0.3 cm. This area is stable during flexion and extension. Good range of motion during flexion and extension. Posterior elements are intact. Mild bilateral facet arthropathy. Apparent narrowing of the neural foramen on the right at C3 through C7 and on the left at C5 through C7. Mild atherosclerotic calcification in the right side of the neck most likely carotid. RAD/Cerv Spine Obl/Flex/Ext Comp IMPRESSION: 1. Multilevel spondylosis. 2. Degenerative disc disease, C6-7. 3. Suspected degenerative grade 1 anterolisthesis of C5 on C6. Good range of motion during flexion and extension. 4. Multilevel neural foraminal narrowing. 5. No acute osseous abnormalities. Reading Location: [facility]
--- NOTE | 2024-09-20 14:00 | RAD_ITS ---
PROCEDURE: SHOULDER MIN 2 VIEWS REASON FOR EXAM: Weakness and shoulder. Tightness. TECHNIQUE: Four (4) views of right shoulder. COMPARISON: None. FINDINGS: RIGHT SHOULDER: No fracture. No suspicious bone lesion. Mild degenerative changes of the glenoid. Normal alignment of the acromioclavicular and glenohumeral joints. Soft tissues are unremarkable. RAD/Shoulder min 2 Views IMPRESSION: Mild degenerative change of the glenoid. No acute osseous abnormalities are demonstrated. Reading Location: [facility]
== END | disposition home or self-care (01) ==
LOC: MTRAD 13:55
PROVIDERS: PCP Family Medicine; Referring Provider Anesthesiology Pain Medicine; Visit Provider Anesthesiology Pain Medicine
DX: M54.2 Cervicalgia (principal); M25.511 Pain in right shoulder
CPT/HCPCS: 72052; 73030

== ENCOUNTER → 2024-12-16 | Outpatient (CLI) | payer MEDICARE, OTHER, SELFPAY ==
[2024-12-16 08:47] LABS: ALB/GLOB Ratio 1.6 RATIO (0.9-2.4); AST(SGOT) 30 U/L (<=37); Alanine Aminotransfer ALT/SGPT 28 U/L (<=46); Albumin, Serum 4.4 g/dL (3.4-4.8); Alkaline Phosphatase 69 U/L (40-129); Anion Gap 11 (5-15); BUN 11 mg/dL (4-19); BUN/Creat Ratio 11.5 RATIO (10-20); Calcium,Total 9.3 mg/dL (7.6-11.0); Carbon Dioxide 22.7 mmol/L (21.0-32.0); Chloride 105 mmol/L (98-108); Cholesterol 180 mg/dL (<=200); Creatinine, Serum 0.96 mg/dL (0.70-1.20); EST Glomerular Filtration Rate 83 (>60); Globulin 2.8 g/dL (2.2-4.2); Glucose 100 mg/dL (70-99); High Density Lipoprotein 31 mg/dL; Low Density Lipoprotein Calc. 120 mg/dL; Potassium 4.2 mmol/L (3.3-5.1); Protein, Total 7.1 g/dL (5.9-8.4); Sodium Level 139 mmol/L (133-145); Triglycerides 142 mg/dL; Very Low Density Lipoprotein 28 mg/dL (5-40); cholesterol:hdl ratio screen 5.73
== END | disposition home or self-care (01) ==
PROVIDERS: PCP Family Medicine; Referring Provider Family Medicine; Visit Provider Family Medicine
DX: I10 Essential (primary) hypertension (principal)
CPT/HCPCS: 36415; 80053; 80061

== ENCOUNTER → 2025-02-17 | Outpatient (CLI) | payer MEDICARE, OTHER, SELFPAY ==
[2025-02-17 17:33] LABS: PSA,Total - Annual Screen 0.73 ng/mL (0.02-4.00)
== END | disposition home or self-care (01) ==
LOC: LAB 16:21
PROVIDERS: PCP Family Medicine; Referring Provider Urology; Visit Provider Urology
DX: Z12.5 Encounter for screening for malignant neoplasm of prostate (principal)
CPT/HCPCS: 36415; 84153; G0103

== ENCOUNTER → 2025-06-16 | Outpatient (CLI) | payer MEDICARE, OTHER, SELFPAY ==
[2025-06-16 08:55] LABS: AST(SGOT) 32 U/L (<=37); Alanine Aminotransfer ALT/SGPT 30 U/L (<=46); Albumin, Serum 4.5 g/dL (3.4-4.8); Alkaline Phosphatase 78 U/L (40-129); Anion Gap 9 (5-15); BUN 12 mg/dL (4-19); BUN/Creat Ratio 12.3 RATIO (10-20); Calcium,Total 9.6 mg/dL (7.6-11.0); Carbon Dioxide 26.0 mmol/L (21.0-32.0); Chloride 105 mmol/L (98-108); Cholesterol 203 mg/dL (<=200); Globulin 2.9 g/dL (2.2-4.2); Glucose 112 mg/dL (70-99); Low Density Lipoprotein Calc. 135 mg/dL; Potassium 4.7 mmol/L (3.3-5.1); Triglycerides 168 mg/dL; Very Low Density Lipoprotein 34 mg/dL (5-40); cholesterol:hdl ratio screen 5.46
== END | disposition home or self-care (01) ==
PROVIDERS: PCP Family Medicine; Visit Provider Family Medicine
DX: I10 Essential (primary) hypertension (principal)
CPT/HCPCS: 36415; 80053; 80061